=== PATIENT | female | born 1995 | race African-American/Black ===

== ENCOUNTER 2017-02-15 14:50 | Emergency (ER) | payer BC ==
[2017-02-15 14:59] VITALS: BP 119/76; PULSE 80; TEMP 98; BMI 21.2
--- NOTE | 2017-02-15 15:46 | PDOC ---
History of Present Illness - General Chief Complaint: Allergic Reaction Stated Complaint: NAUSEA Time Seen by Provider: 02/15/17 15:03 History Source: Patient Exam Limitations: No Limitations - History of Present Illness Travel History: No Initial Comments: 02/15/17 15:40 21 yr female with vaginal discharge for 10 days. Pt was seen in ER in [place] 8 days ago dx with "vaginal infection" placed on doxycycline. Pt took 2 days of the medication then started to get stomach upset and diarrhea so she stopped. Pt here today with continued vaginal discharge. Pt currently has 2 male partners not using condoms. Pt denies abd pain no back pain . LMP two weeks ago. Pt has history of genital herpes. Pain Radiation: reports: no radiation Past History - Past Medical History Allergies/Adverse Reactions: Allergies Allergy/AdvReac Type Severity Reaction Status Date / Time Penicillins Allergy Verified 02/15/17 14:56 Home Medications: Ambulatory Orders NK [No Known Home Medication] 02/15/17 Anemia: Yes - Psycho/Social/Smoking Cessation Hx Suicidal Ideation: No Smoking History: Never smoked Have you smoked in the past 12 months: No Review of Systems - Review of Systems Able to Perform ROS?: Yes Is the patient limited Korean proficient: No Constitutional: No: Symptoms Reported HEENTM: No: Symptoms Reported Respiratory: No: Symptoms reported Cardiac (ROS): No: Symptoms Reported ABD/GI: No: Symptoms Reported : Yes: See HPI *Physical Exam - Vital Signs Last Vital Signs Temp Pulse Resp BP Pulse Ox 98 F 80 18 119/76 100 02/15/17 14:56 02/15/17 14:56 02/15/17 14:56 02/15/17 14:56 02/15/17 14:56 - Physical Exam General Appearance: Yes: Nourished, Appropriately Dressed HEENT: positive: EOMI, FIONA Neck: positive: Supple Respiratory/Chest: positive: Lungs Clear, Normal Breath Sounds Cardiovascular: positive: Regular Rhythm, Regular Rate Female Pelvic Exam: positive: normal adnexa, discharge (thick yellow/light green ). negative: CMT Gastrointestinal/Abdominal: positive: Normal Bowel Sounds. negative: Tender Musculoskeletal: positive: Normal Inspection Extremity: positive: Normal Capillary Refill, Normal Inspection, Normal Range of Motion Integumentary: positive: Normal Color, Dry, Warm Neurologic: positive: Fully Oriented, Alert, Normal Mood/Affect, Normal Response , Motor Strength 5/5 Medical Decision Making - Medical Decision Making 02/15/17 15:43 cc: vaginal discharge will check for STD will r/o pt is non toxic stable vitals I have counseled pt on safe sex and that she needs to notify her sexual partners that they need to be tested and treated. Pt refused HIV test today, refused blood work for RPR. I have discussed that pt needs to follow with the [facility]D clinic for free tesing. Pt agrees and I will give her the information in discharge papers. pt DENIES PCN allergy states she once took it it made her stomach upset she took on empty stomach. Pt has taken Amoxicilln with no reaction , no rash no SOB or diff breathing or throat swelling/tight. 02/15/17 15:53 *DC/Admit/Observation/Transfer Diagnosis at time of Disposition: Vaginal discharge - Discharge Dispostion Disposition: HOME Condition at time of disposition: Good - Referrals Referrals: Betty Myers MD [Staff Physician] - - Patient Instructions Printed Discharge Instructions: Facts About Sexually Transmitted Infections Additional Instructions: avoid any sexual activity until your symptoms have cleared up AND your partners within the last 30 days have been tested and treated follow with your carpenter repair or for follow up and annual PAP smears, pelvic exams, follow with the [facility] for HIV testing and Hepatitis testing [facility] Office [address] [place] [address]., [place], [place] [address] Clinics: return to ER for any worsening symptoms call [phone] to leave message to get test results
[2017-02-15 15:47] LABS: URINE APPEARANCE SLCLOUDY; URINE BILIRUBIN NEGATIVE (NEGATIVE); URINE BLOOD NEGATIVE (NEGATIVE); URINE COLOR LTYELLOW; URINE GLUCOSE (UA) NEGATIVE (NEGATIVE); URINE KETONE NEGATIVE (NEGATIVE); URINE LEUK ESTERASE 3+ (NEGATIVE); URINE NITRITE NEGATIVE (NEGATIVE); URINE PROTEIN NEGATIVE (NEGATIVE); URINE UROBILINOGEN NEGATIVE mg/dL (0.2-1.0)
[2017-02-15 15:53] LABS: URINE RBC 14 /hpf (0-3); URINE WBC 113 /hpf (3-5)
[2017-02-15] MEDS ORDERED: AZITHROMYCIN 1 GM PACKET PO ONE (15:53)
[2017-02-15] MEDS ORDERED: AZITHROMYCIN 1 GM PACKET ONE (16:05)
== END 2017-02-15 16:43 | disposition home or self-care (01) ==
LOC: JERFT 14:50
DX: N89.8 Other specified noninflammatory disorders of vagina (principal); Z87.42 Personal history of other diseases of the female genital tract; Z87.898 Personal history of other specified conditions
CPT/HCPCS: 36415; 81003; 81015; 84703; 87070; 87086; 87186; 87205; 87491; 87591; 87661; 99281-25

== ENCOUNTER 2017-04-17 12:21 | Emergency (ER) | payer BC ==
[2017-04-17 12:32] VITALS: BP 123/70; PULSE 77; TEMP 97.7; BMI 20.3
--- NOTE | 2017-04-17 13:41 | PDOC ---
History of Present Illness - General Chief Complaint: Vaginal Sxs Stated Complaint: URINARY PROBLEM Time Seen by Provider: 04/17/17 13:25 Past History - Past Medical History Allergies/Adverse Reactions: Allergies Allergy/AdvReac Type Severity Reaction Status Date / Time Penicillins Allergy Verified 02/15/17 14:56 Home Medications: Ambulatory Orders Valacyclovir HCl [Valtrex -] 1,000 mg PO BID #14 tablet 04/17/17 Anemia: Yes - Suicide/Smoking/Psychosocial Hx Smoking History: Never smoked Have you smoked in the past 12 months: No *Physical Exam - Vital Signs Last Vital Signs Temp Pulse Resp BP Pulse Ox 97.7 F 77 18 123/70 98 04/17/17 12:23 04/17/17 12:23 04/17/17 12:23 04/17/17 12:23 04/17/17 12:23 *DC/Admit/Observation/Transfer Diagnosis at time of Disposition: Herpes simplex type 2 infection - Discharge Dispostion Disposition: HOME Condition at time of disposition: Good Admit: No - Prescriptions Prescriptions: Valacyclovir HCl [Valtrex -] 1,000 mg PO BID #14 tablet - Referrals Referrals: Skyla Joe DO [Staff Physician] - - Patient Instructions Printed Discharge Instructions: DI for Genital Herpes Additional Instructions: You have an out break. Please take Valtrex twice a day for the next 5 days. You may take Tylenol or Motrin as needed for pain. Follow up with the director of online education for further management. Return to the ED if your symptoms get worse, fevers, chills, headache, if you have vaginal discharge, or any changes in your symptoms - Post Discharge Activity Forms/Work/School Notes: Back to Work
[2017-04-17 14:21] LABS: URINE APPEARANCE CLEAR; URINE BILIRUBIN NEGATIVE (NEGATIVE); URINE BLOOD NEGATIVE (NEGATIVE); URINE COLOR LTYELLOW; URINE GLUCOSE (UA) NEGATIVE (NEGATIVE); URINE KETONE NEGATIVE (NEGATIVE); URINE NITRITE NEGATIVE (NEGATIVE); URINE PROTEIN NEGATIVE (NEGATIVE); URINE UROBILINOGEN NEGATIVE mg/dL (0.2-1.0)
[2017-04-17 16:41] LABS: URINE LEUK ESTERASE Negative (NEGATIVE)
== END 2017-04-17 14:19 | disposition home or self-care (01) ==
LOC: JERFT 12:21
DX: A60.09 Herpesviral infection of other urogenital tract (principal)
CPT/HCPCS: 36415; 81003; 84703; 87491; 87591; 99281-25